=== PATIENT | male | born 1955 | race African-American/Black ===

== ENCOUNTER 2021-07-04 10:05 | Outpatient (CLI) | payer MEDICARE, SELFPAY ==
--- NOTE | 2021-07-04 10:30 | ECG_ITS ---
Measurements Intervals [place] Rate: 63 P: 32 [place]: 195 QRS: -14 QRSD: 109 T: 24 QT: 368 QTc: 377 Interpretive Statements SINUS RHYTHM DELAYED PRECORDIAL R/S TRANSITION BASELINE ARTIFACT- I, II, AVR, AVL, AVF BORDERLINE ECG Electronically Signed On 07-04-2021 10:46:35 PRIMARY OPERATOR by Sonny Francois D.O.
[2021-07-04 11:10] LABS: Anion Gap 8 mmol/L (8-16); Blood Urea Nitrogen 15 mg/dL (9-20); Calcium 9.9 mg/dL (8.4-10.2); Carbon Dioxide 29 mmol/L (22-30); Chloride 99 mmol/L (98-107); Estimated Glomerular Filt Rate > 60; Glucose 139 mg/dL (65-110); Potassium 4.3 mmol/L (3.4-5.0); Sodium 136 mmol/L (137-145)
== END 2021-07-04 10:06 | disposition home or self-care (01) ==
LOC: ANHSURGERY 10:14
PROVIDERS: Anesthesiology; Visit Provider Urology
DX: Z01.818 Encounter for other preprocedural examination (principal); N40.0 Benign prostatic hyperplasia without lower urinary tract symptoms; I10 Essential (primary) hypertension; E11.9 Type 2 diabetes mellitus without complications
CPT/HCPCS: 36415; 80048; 87086; 93005

== ENCOUNTER 2021-07-17 02:16 | Day surgery (SDC) | payer MEDICARE, SELFPAY ==
[2021-07-03 11:30] VITALS: BMI 27.9
--- NOTE | 2021-07-03 11:53 | PC.NURSE ---
Report to the Outpatient Waiting Room, entrance under the green pavilion located off [facility], at time ___10:30AM____ on date _07/17/21 . OR Time: __12:30PM . - You and your visitor will be asked a series of questions to screen for COVID 19 for your protection. - A mask is required within the hospital. - Only one visitor is allowed at this time. Patient visitors will be guided where to wait when not with patient. Preoperative COVID Testing Requirements: No COVID Test needed if: (proof is required; if not received patient will have Rapid Test prior to entry) - Patient has received COVID Vaccine at least 14 days prior to procedure date or - Patient has positive COVID test result within last 90 days of surgery date. COVID Test needed if above criteria is not met If not COVID vaccinated a COVID test must be conducted within 72 hours of surgery and patient is asked to isolate self from time of testing until procedure. You will go to the [facility] for your COVID testing. The [facility] site is located at the corner of [address] from [facility]. You will only be called if COVID results are positive and your surgeon may reschedule your elective surgery date. Patients may have clear liquids (water, carbonated beverages, clear teas, apple juice) until 3 hours prior to surgery with a maximum of 20 ounces. - No food from midnight until time of surgery 9:30AM - Infants may have breast milk until 4 hours before surgery, infant formula 6 hours prior to surgery. - Children will be allowed to drink immediately following surgery. If applicable, please bring a bottle or sippy cup to assist with drinking. Juice, water, soda, and popsicles are readily available. For infants on formula, please bring formula the day of surgery. Pacifiers are allowed. Take the following medications with a SIP of water the morning of surgery: AMLODIPINE, METOPROLOL Medications to discontinue per physician ASPIRIN PER DR WHITE, VITAMINS/SUPPLEMENTS 3 DAYS PRE-OP Date to take last dose___07/13/21 Please no make-up, nail nigerian, hairspray, perfume, deodorant, or body powder the day of surgery. No jewelry (including any body piercings) or valuables the day of surgery, leave them at home. Please take a shower or bath the night before, or the morning of, surgery with an antibacterial soap. Wear comfortable, loose fitting clothing. Children are encouraged to wear pajamas. - Jewelry must be removed prior to entering the operating room. Rings and piercings that are not removed may be cut off. - The hospital will not accept responsibility for valuables. - Please leave all valuables, including medications, at home the day of surgery. If you are going home after surgery, a licensed hydraulic lift driver must drive you home. - NO public transportation without another adult. - We recommend that an adult stay with you for 24 hours following discharge. - We also recommend that you do not drive, make important decision, drink alcoholic beverages, or take any drugs that were not prescribed by your health care provider for at least 24 hours after your discharge time. For Pediatric surgeries, we recommend two adults accompany the child home (only one inside the building at this time). Follow any additional instructions given to you from your surgeon. Telephone instructions given to PATIENT and asked if any additional questions and then verbalized understanding. Patient advised to call surgeon office or pre surgery nurse liaison [phone] if any additional questions.
--- NOTE | 2021-07-16 13:13 | P.PNAN_ITS ---
Anes - Initial Pre Proc Eval Procedure: Operation Date: 07/17/21 12:30 Proposed Procedures p Circumcision - Tyrone Vickers MD s Urolift - Tyrone Vickers MD Date/Time: 07/16/21 13:13 Surgeon: Tyrone Vickers MD Pre Op Diagnosis: phimosis, BPH Patient Data Age: 66 Gender: M Height: 1.85 m Weight: 96 kg Allergies Allergy/AdvReac Type Severity Reaction Status Date / Time GUY Inhibitors AdvReac Cough Verified 07/17/21 11:22 Home Medications Medication Instructions Recorded Confirmed Type allopurinol 300 mg PO DAILY 07/03/21 07/03/21 History amlodipine 10 mg PO QAM 07/03/21 07/17/21 History aspirin 325 mg PO DAILY 07/03/21 07/17/21 History atorvastatin 40 mg PO DAILY 07/03/21 07/03/21 History clotrimazole-betamethasone 1 applic TOPICAL BID 07/03/21 07/03/21 History dapagliflozin [Farxiga] 10 mg PO QAM 07/03/21 07/03/21 History finasteride 5 mg PO DAILY 07/03/21 07/03/21 History metformin 1,000 mg PO BID 07/03/21 07/03/21 History metoprolol succinate [Toprol XL] 25 mg PO QAM 07/03/21 07/17/21 History multivitamin [Multiple Vitamin] 1 tablet PO DAILY 07/03/21 07/03/21 History tamsulosin 0.4 mg PO DAILY 07/03/21 07/03/21 History Patient hx anesthesia problems: none Family hx anesthesia problems: none Results Review: All pre-operative results and documents have been reviewed as part of the pre-operative evaluation. [facility] Past Medical History Medical History (Updated 07/16/21 @ 13:14 by Jose Lay DO) Diabetes type 2, controlled Gout Hyperlipidemia Hypertension Social History Social History Smoking packs per day: 1 Smoking cigarettes per day: 20.0 Years smoked: 20 Smoking pack-years: 20.00 Smoking status: Former smoker Tobacco type: cigarettes Smoking end date: 02/15/95 Alcohol intake: never Substance use: current Substance use type: marijuana Living arrangements: with family Additional living arrangements comments: Spiritual care concerns: No Anes - Eval Final PreProcedure Day of Procedure 07/16/21 13:13 Patient weight: overweight Heart: regular rate and rhythm Lungs: clear to auscultation and normal air movement Airway: Mallampati scale class 1 Neurological: alert and oriented Last oral intake: >/= 8 hours ASA classification: III Emergent: no Anesthetic plan: proceed Anesthesia type and monitoring: general LMA and standard monitoring Results Review: All pre-operative results and documents have been reviewed as part of the pre-operative evaluation. Informed Consent: The patient's anesthetic plan and its attendant risks and benefits were discussed with the patient/family/POA. Questions were solicited and answers provided to the satisfaction of the patient/family/POA.
[2021-07-17] VITALS (7 sets, daily range): BP systolic 121–142; BP diastolic 47–77; PULSE 70–82; RESP 12–16; TEMP 36–36.8; O2SAT 99–100
[2021-07-17] MEDS: LACTATED RINGERS 1,000 ML 30 ML IV CONT ×2 (11:00→13:56)
[2021-07-17 11:17] LABS: Glucose Point of Care 115 mg/dl (65-105)
--- NOTE | 2021-07-17 12:12 | WPDHPUPDATE1 ---
History and Physical Update Update Date/Time: 07/17/21 12:12 History and Physical has been reviewed, including an updated exam of the patient. There are NO changes in the patient's condition. Risks, benefits, and alternatives have been discussed and questions answered. Patient agrees to proceed with procedure. Proceed with circumcision and urolift
[2021-07-17] MEDS: ceFAZolin 2 GM/D5W 50 ML 2 GM/50 ML BAG IVPB (12:52)
[2021-07-17] MEDS: LIDOCAINE HCL 2% GEL UROJET 10 ML PKG MUCOUS MEM (13:41)
--- NOTE | 2021-07-17 13:48 | W.PM.PROC2 ---
Procedure Note - Detailed Date of Procedure 07/17/21 Pre-op Diagnosis phimosis, BPH Post-op Diagnosis same Procedure Performed Circumcision, Uro lift x4 yury Surgeon Tyrone Vickers MD Anesthesia general Description of Procedure Patient is taken to the operative suite correctly identified. Once anesthesia was obtained he was placed in the dorsal lithotomy position and prepped and draped usual sterile fashion. Circumcision was performed using a sleeve technique. The excess foreskin was removed and sent for pathologic review. Reapproximation of the foreskin was performed using 3-0 chromic in interrupted fashion. Dorsal penile block was then performed using 1% lidocaine. The cystoscope was then inserted into the bladder direct vision. He has some lateral lobe hypertrophy and a slightly elevated median bar area. We placed a staple 1 cm proximal to the bladder neck and at the level of the verumontanum. This was done bilaterally for total of 4 yury. There appeared to be an open anterior urethral channel. 2% viscous lidocaine was inserted urethra patient is taken recovery stable condition. Estimated Blood Loss 0 Drains No Packing No Pathology yes Complications No immediate complications Condition stable Disposition PACU
[2021-07-17 14:03] LABS: Glucose Point of Care 103 mg/dl (65-105)
[2021-07-17] MEDS: oxyCODONE HCL (*CRX) 5 MG TAB IR PO (14:57)
== END 2021-07-17 15:21 | disposition home or self-care (01) ==
PROVIDERS: Visit Provider Urology
PROC: (CPT 54161; principal; 2021-07-17 12:30)
PROC: 0T7D8DZ Dilation of Urethra with Intraluminal Device, Via Natural or Artificial Opening Endoscopic (ICD-10-PCS; CPT 52441; 2021-07-17 12:30)
DX: N47.1 Phimosis (principal); N40.1 Benign prostatic hyperplasia with lower urinary tract symptoms; R35.0 Frequency of micturition; R39.15 Urgency of urination; E11.9 Type 2 diabetes mellitus without complications; I10 Essential (primary) hypertension; E78.5 Hyperlipidemia, unspecified; M10.9 Gout, unspecified; Z87.891 Personal history of nicotine dependence; F12.90 Cannabis use, unspecified, uncomplicated; Z79.84 Long term (current) use of oral hypoglycemic drugs; Z79.82 Long term (current) use of aspirin
CPT/HCPCS: 54161; C9740; 36415; 80048; 82948; 87086; 88304; 93005; A9270; J0690; J2250; J2405; J2704; J3010; J7120; L8699